=== PATIENT | male | born 1935 | race Caucasian/White ===

== ENCOUNTER 2017-06-19 11:25 | Inpatient (IN) | payer MEDICARE ==
[~2017-06-19] VITALS: Ht 175.3 cm; Wt 109.7 kg
[2017-06-19] MEDS ORDERED: IMDUR 30MG30 MG/TAB PO (12:27)
[2017-06-19] MEDS ORDERED: PRINIVIL20 MG PO (12:33)
[2017-06-19] MEDS ORDERED: PROZAC 20MG20 MG PO (12:33)
[2017-06-19] MEDS ORDERED: CRESTOR20 MG PO (12:34)
[2017-06-19] MEDS ORDERED: PLAVIX 75MG TAB75 MG PO (12:35)
[2017-06-19] MEDS ORDERED: LASIX 20MG TABL20 MG PO (12:35)
[2017-06-19] MEDS ORDERED: ZANTAC 150MG T150 MG PO ×2 (12:36→12:37)
[2017-06-19] MEDS ORDERED: FLOMAX 0.40.4 MG/CAP PO (12:38)
[2017-06-19] MEDS ORDERED: ASPIRIN E.C. 8181 MG PO (12:39)
[2017-06-19] MEDS ORDERED: NATURAL IRON65 MG (12:40)
[2017-06-19] MEDS ORDERED: PEPTO BISMOL262 MG PO (12:41)
[2017-06-19] MEDS ORDERED: ALEVE LIQCAPS (12:42)
[2017-06-19] MEDS ORDERED: TUMS500 MG (12:42)
[2017-06-19] MEDS ORDERED: TYLENOL 500MG500 MG PO (12:43)
[2017-06-19 18:23] VITALS: BP 134/69; PULSE 64; TEMP 98.4
[2017-06-19 20:46] VITALS: BP 137/55; PULSE 62; TEMP 97.9
[2017-06-20] VITALS (7 sets, daily range): BP systolic 117–162; BP diastolic 58–83; PULSE 72–80; TEMP 97.9–98.7
[2017-06-20 08:23] LABS: HEMATOCRIT 40.4 % (42.0-52.0); HEMOGLOBIN 12.8 g/dl (13.5-18.0); MEAN CELL VOLUME 99 fl (80.0-100.0); MEAN CORPUSCULAR HEMOGLOBIN 31 pg (27.0-31.0); MEAN CORPUSCULAR HGB CONC 32 g/dl (33.0-37.0); MEAN PLATELET VOLUME 9.3 fl (7.4-10.4); PLATELET COUNT 272 K/mm3 (130-400); REDCELL DISTRIBUTION WIDTH-CV 13.8 % (11.5-14.5); WHITE BLOOD COUNT 12.9 K/mm3 (4.8-10.8)
[2017-06-21 05:31] VITALS: BP 148/74; PULSE 69; TEMP 98.4
[2017-06-21 09:44] VITALS: BP 113/46; PULSE 73; TEMP 98.2
[2017-06-21 13:52] VITALS: BP 120/59; PULSE 64; TEMP 97.6
[2017-06-21] MEDS ORDERED: COLACE 100100 MG/CAP PO (15:50)
[2017-06-21] MEDS ORDERED: NORCO 325 MG-51 TAB PO (15:52)
[2017-06-21 17:11] LABS: ADJUSTED CALCIUM 8.3 mg/dL (8.4-10.2); ALBUMIN 4.3 gm/dL (3.5-5.0); BILIRUBIN,TOTAL 1.9 mg/dL (0.0-1.0); CALCIUM 8.5 mg/dL (8.4-10.2); CREATININE, serum 1.01 mg/dL (0.66-1.25); POTASSIUM 3.9 mmol/L (3.4-5.0); TOTAL PROTEIN 8.1 gm/dL (6.4-8.2)
[2017-06-21 17:13] VITALS: BP 124/61; PULSE 72; TEMP 97.9
[2017-06-21 20:33] VITALS: BP 113/59; PULSE 72; TEMP 97.8
[2017-06-22] VITALS (7 sets, daily range): BP systolic 104–143; BP diastolic 49–67; PULSE 61–71; TEMP 97.5–98.5
[2017-06-22 09:02] LABS: HEMATOCRIT 34.5 % (42.0-52.0); MEAN CELL VOLUME 97 fl (80.0-100.0); MEAN CORPUSCULAR HEMOGLOBIN 31 pg (27.0-31.0); MEAN CORPUSCULAR HGB CONC 32 g/dl (33.0-37.0); MEAN PLATELET VOLUME 9.2 fl (7.4-10.4); PLATELET COUNT 260 K/mm3 (130-400); RED BLOOD COUNT 3.57 M/mm3 (4.20-5.60); REDCELL DISTRIBUTION WIDTH-CV 13.8 % (11.5-14.5); WHITE BLOOD COUNT 12.4 K/mm3 (4.8-10.8)
[2017-06-22 09:03] LABS: ADD PATHOLOGY DIFF REVIEW NO
[2017-06-22 09:11] LABS: CALCIUM 8.4 mg/dL (8.4-10.2); CREATININE, serum 1.07 mg/dL (0.66-1.25); POTASSIUM 3.9 mmol/L (3.4-5.0)
[2017-06-22 10:13] LABS: BAND 14 % (0-10); BASOPHIL 1 % (0-2); EOSINOPHIL 2 % (0-4); METAMYELOCYTE 1 % (0-0); NEUTROPHILS 66 % (42.0-75.2); PLATELET ESTIMATE NORMAL (NORMAL); TOTAL CELLS COUNTED 100
[2017-06-23] VITALS (7 sets, daily range): BP systolic 97–132; BP diastolic 44–63; PULSE 65–72; TEMP 97.5–98.5
[2017-06-23 06:48] LABS: BASO # 0.1 (0.0-0.2); BASO % 0.8 % (0.0-2.0); EOS # 0.4 (0.0-0.7); EOS % 3.5 % (0-4.0); GRAN % 67.2 % (42.2-75.2); LYMPH # 1.6 (1.2-3.4); LYMPH % 15.6 % (20.0-51.0); MEAN CELL VOLUME 96 fl (80.0-100.0); MEAN CORPUSCULAR HGB CONC 32 g/dl (33.0-37.0); MEAN PLATELET VOLUME 9.3 fl (7.4-10.4); MONO # 1.2 (0.1-0.6); MONO % 11.9 % (1.7-9.3); PLATELET COUNT 279 K/mm3 (130-400); RED BLOOD COUNT 3.58 M/mm3 (4.20-5.60); REDCELL DISTRIBUTION WIDTH-CV 13.6 % (11.5-14.5); WHITE BLOOD COUNT 10.4 K/mm3 (4.8-10.8)
[2017-06-23 06:50] LABS: HEMATOCRIT 34.5 % (42.0-52.0); MEAN CORPUSCULAR HEMOGLOBIN 31 pg (27.0-31.0)
[2017-06-23 07:05] LABS: CALCIUM 8.6 mg/dL (8.4-10.2); CREATININE, serum 1.08 mg/dL (0.66-1.25); MAGNESIUM 2.2 mg/dL (1.6-2.3); POTASSIUM 3.9 mmol/L (3.4-5.0)
[2017-06-23 16:24] LABS: CALCIUM 8.9 mg/dL (8.4-10.2); CREATININE, serum 1.19 mg/dL (0.66-1.25); POTASSIUM 3.9 mmol/L (3.4-5.0)
[2017-06-24 02:04] VITALS: BP 135/65; PULSE 68; TEMP 98.4
[2017-06-24 06:10] VITALS: BP 131/62; PULSE 66; TEMP 98.8
[2017-06-24 09:25] LABS: HEMATOCRIT 38.9 % (42.0-52.0); HEMOGLOBIN 12.5 g/dl (13.5-18.0); MEAN CELL VOLUME 97 fl (80.0-100.0); MEAN CORPUSCULAR HEMOGLOBIN 31 pg (27.0-31.0); MEAN CORPUSCULAR HGB CONC 32 g/dl (33.0-37.0); PLATELET COUNT 322 K/mm3 (130-400); RED BLOOD COUNT 4.02 M/mm3 (4.20-5.60); REDCELL DISTRIBUTION WIDTH-CV 13.5 % (11.5-14.5); WHITE BLOOD COUNT 10.1 K/mm3 (4.8-10.8)
[2017-06-24 09:34] LABS: CALCIUM 8.9 mg/dL (8.4-10.2); POTASSIUM 4.1 mmol/L (3.4-5.0)
[2017-06-24 10:01] VITALS: BP 125/66; PULSE 67; TEMP 97.8
[2017-06-24 13:52] VITALS: BP 120/57; PULSE 68; TEMP 98.1
[2017-06-24 16:58] VITALS: BP 123/62; PULSE 66; TEMP 98
[2017-06-24 21:20] VITALS: BP 100/40; PULSE 69; TEMP 97.8
[2017-06-25 02:05] VITALS: BP 112/53; PULSE 65; TEMP 98.3
[2017-06-25 05:36] VITALS: BP 138/72; PULSE 63; TEMP 98
[2017-06-25 09:36] VITALS: BP 118/56; PULSE 73; TEMP 98.2
[2017-06-25] MEDS ORDERED: ZESTRIL 10MG10 MG PO (11:25)
[2017-06-25] MEDS ORDERED: LASIX 80MG TABL80 MG PO (11:26)
[2017-06-25] MEDS ORDERED: K-TAB20 PO (11:27)
[2017-06-25] MEDS ORDERED: PYRIDIUM 100MG100 MG PO (11:34)
[2017-06-25] MEDS ORDERED: COLACE 100100 MG/CAP PO (11:34)
[2017-06-25 12:07] LABS: CALCIUM 9.1 mg/dL (8.4-10.2); CREATININE, serum 1.08 mg/dL (0.66-1.25); MAGNESIUM 2.2 mg/dL (1.6-2.3); POTASSIUM 3.9 mmol/L (3.4-5.0)
== END 2017-06-25 16:00 | disposition home health service (06) | DRG 988 ==
LOC: SDCO 11:25 → SURG 16:20 → SDCO 06-20 08:55 → SURG 06-20 09:00
PROVIDERS: Internal Medicine Cardiovascular Disease; Nurse Practitioner Family; Physician Assistant; Urology
PROC: 0VB08ZZ Excision of Prostate, Via Natural or Artificial Opening Endoscopic (ICD-10-PCS; principal; 2017-06-19 14:00)
PROC: 0VBSXZX Excision of Penis, External Approach, Diagnostic (ICD-10-PCS; 2017-06-19 14:00)
DX: I11.0 Hypertensive heart disease with heart failure (principal); N13.8 Other obstructive and reflux uropathy; I50.33 Acute on chronic diastolic (congestive) heart failure; N40.1 Benign prostatic hyperplasia with lower urinary tract symptoms; R35.1 Nocturia; R39.12 Poor urinary stream; I25.10 Atherosclerotic heart disease of native coronary artery without angina pectoris; Z95.5 Presence of coronary angioplasty implant and graft; N47.1 Phimosis; N39.43 Post-void dribbling; D64.9 Anemia, unspecified
CPT/HCPCS: OP; 99223; 99233-AI; 99239; G0378; G8978-GP; G8987-GO; G8988-GO; J0690; J1940; J2250; J2270; J2405; J2704; J3010; J3480; J7120